=== PATIENT | female | born 1985 | race Caucasian/White ===

== ENCOUNTER 2017-04-09 13:20 | Outpatient (CLI) | payer OTHER | END 2017-04-09 13:21 | disposition home or self-care (01) | LOC: LAB 13:20 | PROVIDERS: ATTEND Obstetrics & Gynecology | DX: N91.2 Amenorrhea, unspecified (principal) | CPT/HCPCS: 36415; 84702 ==

== ENCOUNTER 2017-04-11 12:02 | Outpatient (CLI) | payer OTHER | END 2017-04-11 12:03 | disposition home or self-care (01) | LOC: LAB 12:02 | PROVIDERS: ATTEND Obstetrics & Gynecology | DX: N91.2 Amenorrhea, unspecified (principal) | CPT/HCPCS: 36415; 84702 ==

== ENCOUNTER 2017-04-14 13:07 | Outpatient (CLI) | payer OTHER | END 2017-04-14 13:08 | disposition home or self-care (01) | LOC: LAB 13:07 | PROVIDERS: ATTEND Obstetrics & Gynecology | DX: N91.2 Amenorrhea, unspecified (principal) | CPT/HCPCS: 36415; 84702 ==

== ENCOUNTER 2017-12-25 14:02 | Outpatient (CLI) | payer OTHER ==
[2017-12-25] MEDS ORDERED: LIDOCAINE 1% 50 ML MDV ONE (14:37)
[2017-12-25 15:22] LABS: BASOPHILS % (AUTO) 0.2 %; HGB - HEMOGLOBIN 12.2 g/dL (12.0-16.0); LYMPHOCYTES # (AUTO) 1.8 10^3/uL (1.5-3.5); LYMPHOCYTES % (AUTO) 8.8 %; MEAN CORPUSCULAR HEMOGLOBIN 30.5 pg (27.0-31.0); MEAN CORPUSCULAR VOLUME 87.1 fL (81.0-99.0); MEAN PLATELET VOLUME 8.5 fL (7.9-10.8); MONOCYTES % (AUTO) 4.9 %; NEUTROPHILS # (AUTO) 17.8 10^3/uL (1.5-6.6); NEUTROPHILS % (AUTO) 86.1 %; PLT - PLATELET COUNT 140 10^3/uL (130-450); RED BLOOD COUNT 4.02 10^6/uL (4.20-5.40); RED CELL DISTRIBUTION WIDTH 14.9 % (12.0-15.0); WHITE BLOOD COUNT 20.7 x10^3/uL (4.8-10.8)
[2017-12-25] MEDS ORDERED: IBUPROFEN 800 MG TABLET PO ONE (15:30)
[2017-12-25 15:52] VITALS: BP 123/71
[2017-12-25 16:52] LABS: PLATELET ESTIMATE, MANUAL NORMAL (130-450,000) (NORMAL); PLATELET MORPHOLOGY 2+ GIANT PLATELETS (NORMAL)
--- NOTE | 2017-12-25 18:49 | HISTORY & PHYSICAL EXAMINATION ---
DATE OF SERVICE: 12/25/2017 Physician: Reji Hooper MD IDENTIFICATION: Patient is a 32-year-old, G4, P2 female who delivered at 1044, occiput anterior. At the time of delivery, the concern is whether she had a second-degree versus third-degree laceration and should be transferred for repair. Patient has been seen primarily at the [facility]. Her care started at 4.6 weeks, and she has had multiple well-timed visits throughout. She delivered a 5-itiho-64-ounce infant, and at time of delivery, it was difficult to ascertain whether this was a second-degree or third-degree laceration. She presents today for evaluation and repair. PAST MEDICAL HISTORY: Negative. She denies any hypertensive, diabetic, cardiac, or pulmonary disease. PAST SURGICAL HISTORY: She has had a septoplasty in the past. ALLERGIES: TO PENICILLIN, WELL CEPHALEXIN. HABITS: She denies use of alcohol, tobacco, or street or addictive drugs. SOCIAL HISTORY: She is , has a dental hygienist education. FAMILY HISTORY: Noncontributory at this time. PHYSICAL EXAMINATION GENERAL: Well-developed, well-nourished, white female, no acute distress. HEART: Regular rate and rhythm without murmurs. LUNGS: Newman are clear without rales or wheezes. ABDOMEN: Soft. Uterus is palpable. GENITALIA: Upon inspecting the perineum, there is what appears to be a second- degree laceration. It does go down to the rectal sphincter. It includes the capsule, but does not appear to transect the fibers. Following informed consent, it was decided to repair this. Following local anesthesia with 1% lidocaine injection, the posterior vaginal mucosa was noted to be torn roughly 4-5 cm in. This was closed with a running locking suture of 0 Vicryl. The perineum showed an intact rectal sphincter; however, the capsule was ruptured, as well as the peritoneum being well . There were sutures taken to repair the perineum deep, and then the perineal body was repaired with sutures deep and then a subcuticular stitch. Extra stitches were placed at the capsule to repair this and to help to increase its continuity. Patient tolerated procedure well. At the end of the procedure, sponge and needle counts were correct. We obtained a CBC, which showed a normal hemoglobin, hematocrit, as well as platelet count; however, her white count was 14,000. There was no evidence of any prolonged rupture of membranes or any other fevers or chills at this time. IMPRESSION 1. A 32-year-old, G4, P2 female we are meeting in the the area with evidence of a second-degree laceration, which included the capsule of the sphincter. 2. Leukocytosis. This is probably just due to the trauma of childbirth. PLAN: We will allow the patient to go home and report any chills, fevers, temperatures. She should follow up in the clinic in roughly 4 weeks to inspect the incision to make sure it is well healed. TD: 12/25/2017 17:05 MIKEY
== END 2017-12-25 16:50 | disposition home or self-care (01) ==
LOC: WFO 14:02 → FBP 14:05 → WFO 16:50
PROVIDERS: ATTEND Obstetrics & Gynecology
DX: O70.1 Second degree perineal laceration during delivery (principal); O99.13 Other diseases of the blood and blood-forming organs and certain disorders involving the immune mechanism complicating the puerperium; D72.829 Elevated white blood cell count, unspecified
CPT/HCPCS: 36415; 59300; 85025; A9270; 99215

== ENCOUNTER 2019-03-08 19:17 | Outpatient (CLI) | payer OTHER | END 2019-03-08 19:18 | disposition home or self-care (01) | LOC: LAB 19:17 | PROVIDERS: ATTEND Midwife | DX: Z34.01 Encounter for supervision of normal first pregnancy, first trimester (principal) | CPT/HCPCS: 84702 ==

== ENCOUNTER 2019-03-10 18:14 | Outpatient (CLI) | payer OTHER | END 2019-03-10 18:15 | disposition home or self-care (01) | LOC: LAB 18:14 | PROVIDERS: ATTEND Midwife | DX: Z34.01 Encounter for supervision of normal first pregnancy, first trimester (principal) | CPT/HCPCS: 36415; 84702 ==

== ENCOUNTER 2019-03-12 17:43 | Outpatient (CLI) | payer OTHER | END 2019-03-12 17:44 | disposition home or self-care (01) | LOC: LAB 17:43 | PROVIDERS: ATTEND Midwife | DX: Z34.01 Encounter for supervision of normal first pregnancy, first trimester (principal) | CPT/HCPCS: 36415; 84702 ==

== ENCOUNTER 2019-04-16 13:30 | Outpatient (CLI) | payer OTHER | END 2019-04-16 23:59 | disposition home or self-care (01) | LOC: LAB.R 13:30 | PROVIDERS: ATTEND Midwife | DX: Z34.01 Encounter for supervision of normal first pregnancy, first trimester (principal) | CPT/HCPCS: 84144; 84702; 84703 ==

== ENCOUNTER 2019-04-18 13:08 | Outpatient (CLI) | payer OTHER | END 2019-04-18 13:09 | disposition home or self-care (01) | LOC: LAB 13:08 | PROVIDERS: ATTEND Midwife | DX: Z34.01 Encounter for supervision of normal first pregnancy, first trimester (principal) | CPT/HCPCS: 36415; 84702 ==

== ENCOUNTER 2021-01-29 08:00 | Outpatient (CLI) | payer OTHER ==
--- NOTE | 2021-01-30 13:37 | XRAY Report ---
PROCEDURE: Cervical Spine 2 View INDICATIONS: NECK AND BACK PX TECHNIQUE: 3 view(s) of the cervical spine were acquired. COMPARISON: None. FINDINGS: Bones: No fractures or dislocations to the C7 level. Loss of normal cervical lordosis. Mild facet h ypertrophy throughout the mid and lower cervical spine. Mild endplate osteophyte formation at C5-C6, C6-C7, and C7-T1. The lateral masses of C1 appear intact on the odontoid view. No suspicious bony le sions. Soft tissues: No prevertebral soft tissue swelling. IMPRESSION: Multilevel degenerative disc and facet disease. No acute fracture. No osseous lesion. If symptoms and/or clinical suspicion for pathology continue, further assessment with repeat plain film s, or advanced imaging (e.g., CT, MRI, or bone scan) is recommended for further assessment. Reviewed by: Parul Mart MD on 01/30/2021 1:35 PM PST Approved by: Parul Mart MD on 01/30/2021 1:35 PM PST Station ID: [id number]
== END 2021-01-29 23:59 | disposition home or self-care (01) ==
LOC: DI.N 08:00
PROVIDERS: ATTEND Family Medicine
DX: M50.30 Other cervical disc degeneration, unspecified cervical region (principal); M54.9 Dorsalgia, unspecified

== ENCOUNTER 2021-01-29 13:53 | Outpatient (CLI) | payer OTHER | END 2021-01-29 13:54 | disposition EMS.NT | LOC: EMS 13:53 | DX: S81.012A Laceration without foreign body, left knee, initial encounter (principal); V53.0XXA Driver of pick-up truck or van injured in collision with car, pick-up truck or van in nontraffic accident, initial encounter; Y93.89 Activity, other specified; Y92.481 Parking lot as the place of occurrence of the external cause ==

== ENCOUNTER 2023-09-13 08:00 | Outpatient (CLI) | payer OTHER | END 2023-09-13 23:59 | disposition home or self-care (01) | LOC: LAB 08:00 | PROVIDERS: ATTEND Emergency Medicine | DX: J02.9 Acute pharyngitis, unspecified (principal) | CPT/HCPCS: 87070; 87077 ==

== ENCOUNTER 2023-11-01 10:02 | Outpatient (CLI) | payer OTHER ==
--- NOTE | 2023-11-01 19:25 | XRAY Report ---
PROCEDURE: Hand 3+V RT INDICATIONS: SPRAIN OF METACARPOPHALANGEAL JOING RT THUMB TECHNIQUE: 3 views of the hand(s) acquired. COMPARISON: None. FINDINGS: Bones: No fractures or dislocations. No suspicious bony lesions. Soft tissues: No suspicious soft tissue calcifications or masses. IMPRESSION: No visualized acute fracture or dislocation. However, occult injury cannot be excluded. Recommend ector rt interval imaging follow-up in 7-10 days as clinically indicated for additional evaluation. Reviewed by: Xuan Blake MD on 11/01/2023 7:24 PM PDT Approved by: Xuan Blake MD on 11/01/2023 7:24 PM PDT Station ID: [id number]
== END 2023-11-01 10:03 | disposition home or self-care (01) ==
LOC: DI 10:02
PROVIDERS: ATTEND Physician Assistant
DX: S63.641A Sprain of metacarpophalangeal joint of right thumb, initial encounter (principal)

== ENCOUNTER 2023-11-19 08:00 | Outpatient (CLI) | payer OTHER | END 2023-11-19 23:59 | disposition home or self-care (01) | LOC: LAB.N 08:00 | PROVIDERS: ATTEND Physician Assistant Medical | DX: J02.9 Acute pharyngitis, unspecified (principal) | CPT/HCPCS: 87070; 87077 ==